=== PATIENT | male | born 1990 | race Asian ===

== ENCOUNTER 2024-07-31 17:45 | Inpatient (IN) | payer OTHER ==
[~2024-07-31] VITALS: Ht 165.1 cm; Wt 63.5 kg
[2024-07-31] MEDS: HALOPERIDOL LACTATE 5 MG/ML VIAL IM ONE (18:16)
[2024-07-31] MEDS: LORazepam 2 MG/ML VIAL IM ONE (18:16)
[2024-07-31] MEDS: DiphenhydrAMINE HCL 50 MG/ML VIAL IM ONE (18:16)
[2024-07-31 18:24] LABS: COVID AG,FIA SOURCE NASAL SWAB
[2024-07-31 18:58] LABS: BASOPHILS % (AUTO) 0.5 % (0.0-2.0); EOSINOPHILS % (AUTO) 0.3 % (1.0-6.0); HEMATOCRIT 41.7 % (41-53); HEMOGLOBIN 13.5 g/dL (13.5-17.5); LYMPHOCYTES # (AUTO) 1.3 K/uL (1.0-4.8); LYMPHOCYTES % (AUTO) 16.8 % (22.0-44.0); MEAN CORPUSCULAR HGB CONC 32.3 G/dL (31.0-37.0); MEAN CORPUSCULAR VOLUME 80 fL (80-100); MONOCYTES # (AUTO) 1.2 K/uL (0.1-1.0); NEUTROPHILS # (AUTO) 5.2 K/uL (1.8-7.7); NEUTROPHILS % (AUTO) 67.4 % (40.0-70.0); PLATELET COUNT (AUTO) 248 K/uL (150-450); RED BLOOD CELL COUNT(AUTO) 5.18 MIL/uL (4.50-5.90); RED CELL DISTRIBUTION WIDTH 13.6 % (11.5-14.5); WHITE BLOOD COUNT (AUTO) 7.7 K/uL (4.5-11.0)
[2024-07-31 19:07] LABS: SARS-COV2 (COVID) ANTIGEN,FIA Negative (Negative)
[2024-07-31 19:09] LABS: ANION GAP 21 mmol/L (8-16); CALCIUM, TOTAL 8.9 mg/dL (8.8-10.5); CARBON DIOXIDE 19 mmol/L (22-29); CHLORIDE 96 mmol/L (98-107); CREATININE 1.02 mg/dL (0.60-1.30); GLOMERULAR FILTR. RATE CALC > 60 mL/min (>60); GLUCOSE,RANDOM 71 mg/dL (70-110); SODIUM SERUM 136 mmol/L (136-145); UREA NITROGEN, BLOOD 16 mg/dL (7-18)
[2024-07-31 19:14] LABS: POTASSIUM 2.7 mmol/L (3.5-5.1)
[2024-07-31 19:17] LABS: ALCOHOL, BLOOD (SERUM) < 3 mg/dL (0-10)
[2024-07-31] MEDS: SODIUM CHLORIDE 0.9% 1,000 ML IV ONE (20:09)
[2024-07-31] MEDS: POTASSIUM CHL 10 MEQ/WATER 50 ML IV SCH (20:10)
[2024-07-31] MEDS ORDERED: ACETAMINOPHEN 325 MG TABLET PO PRN (20:15)
[2024-07-31] MEDS ORDERED: ONDANSETRON HCL 4 MG/2 ML VIAL IVP PRN (20:15)
[2024-07-31] MEDS: POTASSIUM CHLORIDE 20 MEQ ER TABLET PO ONE (20:21)
[2024-07-31 20:57] LABS: ALBUMIN 3.7 g/dL (3.4-5.0); BILIRUBIN,DIRECT 0.4 mg/dL (0.00-0.20); BILIRUBIN,TOTAL 1.7 mg/dL (0.1-1.0); TOTAL PROTEIN, SERUM 6.6 g/dL (6.4-8.2)
[2024-07-31 21:00] LABS: TROPONIN I-HIGH SENSITIVITY 11 ng/L (<76)
[2024-07-31] MEDS: DOCUSATE SODIUM 100 MG CAPSULE PO SCH (21:00)
[2024-07-31] MEDS: RINGERS SOLUTION,LACTATED 500 ML IV ONE (21:27)
[2024-07-31 22:17] LABS: LACTIC ACID 1.8 mmol/L (0.4-2.0)
[2024-07-31] MEDS: 1: MAGNESIUM SULFATE 2 GM, MVI, ADULT NO.1 WITH VIT K 10 ML, THIAMINE 100 MG, FOLIC ACID IV SCH (23:10)
[2024-08-01] MEDS ORDERED: HEPARIN SODIUM,PORCINE 5,000 UNITS/ML VIAL SQ SCH
[2024-08-01] MEDS: ChlorproMAZINE HCL 50 MG/2 ML AMP IM ONE (01:13)
[2024-08-01 06:25] LABS: BASOPHILS % (AUTO) 0.5 % (0.0-2.0); EOSINOPHILS % (AUTO) 1.9 % (1.0-6.0); HEMOGLOBIN 12.2 g/dL (13.5-17.5); LYMPHOCYTES % (AUTO) 31.8 % (22.0-44.0); MEAN CORPUSCULAR HEMOGLOBIN 25.9 pg (26.0-34.0); MEAN CORPUSCULAR VOLUME 81 fL (80-100); MONOCYTES % (AUTO) 15.9 % (2.0-9.0); NEUTROPHILS # (AUTO) 3.2 K/uL (1.8-7.7); NEUTROPHILS % (AUTO) 49.9 % (40.0-70.0); PLATELET COUNT (AUTO) 209 K/uL (150-450); RED BLOOD CELL COUNT(AUTO) 4.69 MIL/uL (4.50-5.90); RED CELL DISTRIBUTION WIDTH 13.5 % (11.5-14.5); WHITE BLOOD COUNT (AUTO) 6.4 K/uL (4.5-11.0)
[2024-08-01 06:38] LABS: ANION GAP 21 mmol/L (8-16); CALCIUM, TOTAL 8.5 mg/dL (8.8-10.5); CARBON DIOXIDE 20 mmol/L (22-29); CHLORIDE 103 mmol/L (98-107); CREATININE 0.81 mg/dL (0.60-1.30); GLOMERULAR FILTR. RATE CALC > 60 mL/min (>60); GLUCOSE,RANDOM 62 mg/dL (70-110); POTASSIUM 3.5 mmol/L (3.5-5.1); SODIUM SERUM 144 mmol/L (136-145); UREA NITROGEN, BLOOD 9 mg/dL (7-18)
[2024-08-01 06:46] LABS: TROPONIN I-HIGH SENSITIVITY 10 ng/L (<76)
[2024-08-01] MEDS: POTASSIUM CHLORIDE 10% 40 MEQ/30 ML LIQUID UDCUP PO ONE (09:30)
[2024-08-01 09:41] VITALS: BP 133/72; PULSE 98; RESP 17; TEMP 96.3; O2SAT 96
[2024-08-01] MEDS: LORazepam 2 MG/ML VIAL IVP ONE (17:30)
[2024-08-01] MEDS: POTASSIUM CHL 10 MEQ/WATER 50 ML IV SCH (17:34)
[2024-08-01] MEDS: HALOPERIDOL LACTATE 5 MG/ML VIAL IM ONE (18:05)
[2024-08-01] MEDS: LORazepam 2 MG/ML VIAL IM PRN (22:20)
[2024-08-01] MEDS ORDERED: HALOPERIDOL LACTATE 5 MG/ML VIAL IM ONE (23:45)
[2024-08-02] MEDS: HEPARIN SODIUM,PORCINE 5,000 UNITS/ML VIAL SQ SCH
[2024-08-02 05:03] VITALS: BP 120/95; PULSE 155; RESP 17; O2SAT 95
[2024-08-02] MEDS: DiphenhydrAMINE HCL 50 MG/ML VIAL IM ONE (10:00)
[2024-08-02] MEDS: HALOPERIDOL LACTATE 5 MG/ML VIAL IM ONE ×2 (10:07→18:27)
[2024-08-02] MEDS: LORazepam 2 MG/ML VIAL IVP ONE (10:07)
[2024-08-02] MEDS: 1: MAGNESIUM SULFATE 2 GM, MVI, ADULT NO.1 WITH VIT K 10 ML, THIAMINE 100 MG, FOLIC ACID IV SCH (10:12)
[2024-08-02 10:24] VITALS: BP 126/83; PULSE 121; RESP 18; O2SAT 98
[2024-08-02 11:31] VITALS: PULSE 82
[2024-08-02 11:36] LABS: BASOPHILS % (AUTO) 0.4 % (0.0-2.0); EOSINOPHILS % (AUTO) 0.8 % (1.0-6.0); HEMOGLOBIN 11.6 g/dL (13.5-17.5); LYMPHOCYTES # (AUTO) 0.8 K/uL (1.0-4.8); LYMPHOCYTES % (AUTO) 13.7 % (22.0-44.0); MEAN CORPUSCULAR HEMOGLOBIN 25.9 pg (26.0-34.0); MEAN CORPUSCULAR HGB CONC 31.4 G/dL (31.0-37.0); MEAN CORPUSCULAR VOLUME 83 fL (80-100); MONOCYTES # (AUTO) 0.6 K/uL (0.1-1.0); MONOCYTES % (AUTO) 10.8 % (2.0-9.0); NEUTROPHILS # (AUTO) 4.2 K/uL (1.8-7.7); NEUTROPHILS % (AUTO) 74.3 % (40.0-70.0); PLATELET COUNT (AUTO) 217 K/uL (150-450); RED BLOOD CELL COUNT(AUTO) 4.48 MIL/uL (4.50-5.90); RED CELL DISTRIBUTION WIDTH 14.1 % (11.5-14.5); WHITE BLOOD COUNT (AUTO) 5.6 K/uL (4.5-11.0)
[2024-08-02 11:39] LABS: ANION GAP 20 mmol/L (8-16); CALCIUM, TOTAL 8.5 mg/dL (8.8-10.5); CARBON DIOXIDE 16 mmol/L (22-29); CHLORIDE 107 mmol/L (98-107); CREATININE 0.72 mg/dL (0.60-1.30); GLOMERULAR FILTR. RATE CALC > 60 mL/min (>60); POTASSIUM 3.4 mmol/L (3.5-5.1); SODIUM SERUM 143 mmol/L (136-145); UREA NITROGEN, BLOOD 3 mg/dL (7-18)
[2024-08-02 11:42] LABS: GLUCOSE,RANDOM 45 mg/dL (70-110)
[2024-08-02] MEDS: DEXTROSE 50%-WATER 25 GM/50 ML SYRINGE IVP PRN (11:45)
[2024-08-02 11:50] VITALS: BP 106/64; PULSE 84; RESP 18; TEMP 97; O2SAT 99
[2024-08-02 11:54] LABS: TROPONIN I-HIGH SENSITIVITY 7 ng/L (<76)
[2024-08-02] MEDS: POTASSIUM CHL 10 MEQ/WATER 50 ML IV SCH (13:02)
[2024-08-02 15:20] VITALS: PULSE 90
[2024-08-02 15:26] LABS: GLUCOMETER DEV NAME(LOC) 5S.2D; GLUCOSE,POINT OF CARE 152 MG/DL (70-110)
[2024-08-02 19:22] VITALS: BP 122/46; PULSE 129; RESP 20; TEMP 97.3; O2SAT 98
[2024-08-02] MEDS: QUEtiapine FUMARATE 25 MG TABLET PO SCH (21:00)
[2024-08-02] MEDS: RINGERS SOLUTION,LACTATED 1,000 ML IV ONE (21:33)
[2024-08-02] MEDS: LORazepam 2 MG/ML VIAL IVP PRN (21:54)
[2024-08-02] MEDS: DEXTROSE 5%-LACTATED RINGERS 1,000 ML IV SCH (22:32)
[2024-08-03 00:33] VITALS: BP 128/72; PULSE 112; RESP 20; TEMP 97.9; O2SAT 96
[2024-08-03 06:39] VITALS: BP 116/56; PULSE 71; RESP 20; TEMP 97.4; O2SAT 97
[2024-08-03 07:42] VITALS: BP 103/63; PULSE 79; RESP 18; TEMP 97.2; O2SAT 100
[2024-08-03 09:18] LABS: PH,URINE DRUG SCREEN 5.5 (5.0-8.0)
[2024-08-03 09:26] LABS: ALCOHOL, URINE DRUG SCREEN NEGATIVE (NEGATIVE); AMPHET/METH SCREEN,URINE NEGATIVE (NEGATIVE); BARBITURATE SCREEN, URINE NEGATIVE (NEGATIVE); BENZODIAZEPINES SCREEN,URINE NEGATIVE (NEGATIVE); CANNABINOID SCREEN,URINE NEGATIVE (NEGATIVE); COCAINE SCREEN,URINE NEGATIVE (NEGATIVE); METHADONE SCREEN, URINE NEGATIVE (NEGATIVE); OPIATE SCREEN,URINE NEGATIVE (NEGATIVE); PHENCYCLIDINE SCREEN,URINE NEGATIVE (NEGATIVE)
[2024-08-03] MEDS: HALOPERIDOL LACTATE 5 MG/ML VIAL IM ONE (13:34)
[2024-08-03 17:33] LABS: ANION GAP 18 mmol/L (8-16); CALCIUM, TOTAL 8.7 mg/dL (8.8-10.5); CARBON DIOXIDE 18 mmol/L (22-29); CHLORIDE 104 mmol/L (98-107); CREATINE KINASE, TOTAL ONLY 933 U/L (39-308); GLOMERULAR FILTR. RATE CALC > 60 mL/min (>60); GLUCOSE,RANDOM 73 mg/dL (70-110); POTASSIUM 3.9 mmol/L (3.5-5.1); SODIUM SERUM 140 mmol/L (136-145); UREA NITROGEN, BLOOD 1 mg/dL (7-18)
[2024-08-03 19:41] VITALS: BP 129/86; PULSE 111; RESP 19; TEMP 97.4; O2SAT 88
[2024-08-03 22:00] LABS: GLUCOMETER DEV NAME(LOC) 5N.1D; GLUCOSE,POINT OF CARE 70 MG/DL (70-110)
[2024-08-03 23:16] VITALS: BP 121/74; PULSE 99; RESP 19; TEMP 98.2; O2SAT 100
[2024-08-04] MEDS: DiphenhydrAMINE HCL 50 MG/ML VIAL IM ONE (17:19)
[2024-08-04] MEDS: LORazepam 2 MG/ML VIAL IM ONE (17:19)
[2024-08-04] MEDS: HALOPERIDOL LACTATE 5 MG/ML VIAL IM ONE (17:22)
[2024-08-04 18:05] VITALS: BP 105/66; PULSE 75; RESP 20; TEMP 98.1; O2SAT 100
[2024-08-04 18:10] LABS: BASOPHILS % (AUTO) 0.5 % (0.0-2.0); EOSINOPHILS % (AUTO) 0.5 % (1.0-6.0); HEMATOCRIT 38.8 % (41-53); HEMOGLOBIN 12.3 g/dL (13.5-17.5); LYMPHOCYTES # (AUTO) 0.9 K/uL (1.0-4.8); LYMPHOCYTES % (AUTO) 23.3 % (22.0-44.0); MEAN CORPUSCULAR HEMOGLOBIN 25.7 pg (26.0-34.0); MEAN CORPUSCULAR HGB CONC 31.8 G/dL (31.0-37.0); MEAN CORPUSCULAR VOLUME 81 fL (80-100); MONOCYTES # (AUTO) 0.4 K/uL (0.1-1.0); MONOCYTES % (AUTO) 10.4 % (2.0-9.0); NEUTROPHILS # (AUTO) 2.6 K/uL (1.8-7.7); NEUTROPHILS % (AUTO) 65.3 % (40.0-70.0); PLATELET COUNT (AUTO) 210 K/uL (150-450); RED CELL DISTRIBUTION WIDTH 13.8 % (11.5-14.5); WHITE BLOOD COUNT (AUTO) 3.9 K/uL (4.5-11.0)
[2024-08-04 18:27] LABS: ALANINE AMINOTRANSFERASE 20 U/L (12-78); ALBUMIN 3.1 g/dL (3.4-5.0); ALKALINE PHOSPHATASE 70 U/L (46-116); ANION GAP 16 mmol/L (8-16); ASPARTATE AMINOTRANSFERASE 26 U/L (15-37); BILIRUBIN,TOTAL 0.9 mg/dL (0.1-1.0); CALCIUM, TOTAL 8.3 mg/dL (8.8-10.5); CARBON DIOXIDE 19 mmol/L (22-29); CHLORIDE 104 mmol/L (98-107); CREATININE 0.72 mg/dL (0.60-1.30); GLOMERULAR FILTR. RATE CALC > 60 mL/min (>60); GLUCOSE,RANDOM 67 mg/dL (70-110); POTASSIUM 3.4 mmol/L (3.5-5.1); SODIUM SERUM 139 mmol/L (136-145); TOTAL PROTEIN, SERUM 6.1 g/dL (6.4-8.2); UREA NITROGEN, BLOOD 1 mg/dL (7-18)
[2024-08-04 19:01] LABS: GLUCOMETER DEV NAME(LOC) 5S.2D; GLUCOSE,POINT OF CARE 64 MG/DL (70-110)
[2024-08-04] MEDS ORDERED: SODIUM CHLORIDE 0.9% 0 ML ONE (20:18)
[2024-08-04] MEDS ORDERED: SODIUM CHLORIDE 0.9% 500 ML IV ONE (20:18)
[2024-08-04] MEDS ORDERED: SODIUM CHLORIDE 0.9% 250 ML IV ONE (20:19)
[2024-08-04] MEDS: POTASSIUM CHL 10 MEQ/WATER 50 ML IV SCH (21:06)
[2024-08-04 22:51] LABS: GLUCOMETER DEV NAME(LOC) 5S.1C; GLUCOSE,POINT OF CARE 164 MG/DL (70-110)
[2024-08-04 22:51] LABS: GLUCOMETER DEV NAME(LOC) 5S.1C; GLUCOSE,POINT OF CARE 57 MG/DL (70-110)
[2024-08-05 00:13] VITALS: BP 121/79; PULSE 73; RESP 18; TEMP 97.7; O2SAT 100
[2024-08-05] MEDS: DEXTROSE 50%-WATER 25 GM/50 ML SYRINGE IVP ONE (01:33)
[2024-08-05 02:15] LABS: GLUCOMETER DEV NAME(LOC) 5S.1C; GLUCOSE,POINT OF CARE 163 MG/DL (70-110)
[2024-08-05 02:15] LABS: GLUCOMETER DEV NAME(LOC) 5S.1C; GLUCOSE,POINT OF CARE 91 MG/DL (70-110)
[2024-08-05 03:26] LABS: GLUCOMETER DEV NAME(LOC) 5S.1C; GLUCOSE,POINT OF CARE 89 MG/DL (70-110)
[2024-08-05 04:19] VITALS: BP 130/67; PULSE 74; RESP 19; TEMP 98.1; O2SAT 99
== END 2024-08-05 05:55 | DRG 92 ==
LOC: EMS 17:45 → EDH 20:06 → 5S 08-01 09:00
PROVIDERS: ADMIT Internal Medicine; ATTEND Internal Medicine
PROC: GZ56ZZZ Individual Psychotherapy, Supportive (ICD-10-PCS; principal; 2024-08-03)
DX: G92.8 Other toxic encephalopathy (principal); E87.20 Acidosis, unspecified; E87.6 Hypokalemia; I10 Essential (primary) hypertension; E16.2 Hypoglycemia, unspecified; Z20.822 Contact with and (suspected) exposure to COVID-19; F32.9 Major depressive disorder, single episode, unspecified; R94.31 Abnormal electrocardiogram [ECG] [EKG]; T50.995A Adverse effect of other drugs, medicaments and biological substances, initial encounter; F41.9 Anxiety disorder, unspecified; Z91.199 Patient's noncompliance with other medical treatment and regimen due to unspecified reason; Z78.1 Physical restraint status; Y92.89 Other specified places as the place of occurrence of the external cause
CPT/HCPCS: 70450; 80048; 80053; 80076; 80307; 82550; 82962; 83605; 83735; 84132; 84443; 84484; 85025; 93005; 93306; 99291; G0378; G0480; J1200; J1630; J1644; J2060; J3230; J3411; J3475; J3480; J3490; J7030; J7040; J7050; J7120